=== PATIENT | female | born 1955 | race Caucasian/White ===

== ENCOUNTER 2017-12-03 18:42 | Emergency (ER) | payer OTHER ==
[~2017-12-03] VITALS: Ht 162.6 cm; Wt 55.0 kg
[2017-12-03] MEDS ORDERED: LITH300C3 PO (19:08)
[2017-12-03] MEDS ORDERED: GABA-533 PO (19:08)
[2017-12-03] MEDS ORDERED: AMLO-511 PO (19:08)
[2017-12-03 23:00] VITALS: BP 139/79
== END 2017-12-03 23:07 | disposition home or self-care (01) ==
LOC: EMS 18:44 → EDBD 18:44 → EMS 23:07
DX: M25.561 Pain in right knee (principal); M25.562 Pain in left knee; G89.29 Other chronic pain; F41.9 Anxiety disorder, unspecified; I10 Essential (primary) hypertension
CPT/HCPCS: 99283